=== PATIENT | female | born 1990 | race Caucasian/White ===

== ENCOUNTER 2016-09-10 00:20 | Emergency (ER) | payer OTHER ==
[~2016-09-10] VITALS: Ht 170.2 cm; Wt 68.0 kg
[2016-09-10 00:26] VITALS: BP 116/70
--- NOTE | 2016-09-10 02:25 | NUR ---
PATIENT LEFT WITHOUT BEING SEEN BY DR. ASH. NO FURTHER CARE PROVIDED FOR PATIENT.
== END 2016-09-10 02:25 | disposition left against medical advice (07) ==
LOC: MED 00:20
DX: R10.9 Unspecified abdominal pain (principal); Z53.21 Procedure and treatment not carried out due to patient leaving prior to being seen by health care provider